=== PATIENT | male | born 1950 | race Hispanic/Latino ===

== ENCOUNTER → 2019-05-26 | Day surgery (SDC) | payer MEDICARE ==
[~2019-05-26] MED LIST: CEFTRIAXONE SOD 1 GM/NS 50 ML 50 ML IV ONE; DEXAMETHASONE SOD PHOS INJ 4 MG/ML VIAL ONE; EPHEDRINE SULFATE INJ 50 MG/ML VIAL ONE; GABAPENTIN PO; IOPAMIDOL 300MG/ML 50ML INFUS..BTL IV ONE; LIDOCAINE HCL 2% LOCAL INJ 5 ML SDV VIAL INJ ONE; NORCO PO; PROPOFOL IV EMULSION 10 MG/ML 20 ML VIAL ONE; ROCURONIUM BROMIDE 10 MG/ML 5ML VIAL IV ONE; SEVOFLURANE INHAL SOLN 250 ML PEN BTL ONE; SUCCINYLCHOLINE CHLORIDE 20 MG/ML 10ML VIAL ONE
--- OUTSIDE RECORDS SUMMARY | 2019-05-26 05:45 | XMS REPORT | Summary of Care ---
Demographics Address [address] [place] [id number] Home Phone Preferred Language Spanish Marital Status Single Moravian Affiliation CAT Race White Ethnic Group /Latin Author Author [facility] - Health Organization [facility] - Health Address Unknown Phone Unavailable Care Team Providers Care Applications Scientist Name Role Phone Kenzie Lowery Sj PCP Reason for Visit * Reason Comments Notification Encounter Details Care Team Description Date Type Department Oscar Penny MD [address] [place] [id number] Notification 03/17/2019 Telephone [facility] and [address] [phone] Allergies Comments Active Allergy Reactions Severity Noted Date Constipation Codeine Unknown - See Low 03/08/2019 comments documented as of this encounter (statuses as of 03/17/2019) Medications End Date Status Medication Sig Dispensed Refills Start Date Active HYDROcodone-acetaminophen 0 10-325 mg tablet 8 Active gabapentin 300 mg capsule 0 8 Active brompheniramine-pseudoeph Take 5 mL by 150 mL 0 edrine-DM (BROMFED DM) mouth 4 8 2-30-10 mg/5 mL (four) times syrupIndications: Cough daily as with congestion of needed for paranasal sinus, Smoker Cold symptoms or Cough. Active tamsulosin 0.4 mg 24 hr Take 1 28 capsule 0 capsuleIndications: capsule by 0 Kidney stone on right mouth daily. side Active ciprofloxacin HCl 500 mg Take 1 tablet 10 tablet 0 tabletIndications: Kidney by mouth 0 stone on right side every 12 (twelve) hours. documented as of this encounter (statuses as of 03/17/2019) Active Problems Problem Noted Date Acute right flank pain 03/13/2019 Overview: Added automatically from request for surgery [id number] Kidney stone on right side 03/13/2019 Overview: Added automatically from request for surgery [id number] Urinary tract obstruction due to kidney stone 03/08/2019 Abdominal pain 03/08/2019 Sciatica 01/15/2018 Smoker 01/15/2018 documented as of this encounter (statuses as of 03/17/2019) Social History Date Tobacco Use Types Packs/Day Years Used Current Every Day Smoker Smokeless Tobacco: Never Used Drinks/Week oz/Week Comments Alcohol Use Yes Sex Assigned at Date Recorded Not on file Industry Job Start Date Occupation Not on file Not on file Not on file Travel End Travel History Travel Start No recent travel history available. documented as of this encounter Last Filed Vital Signs Not on filedocumented in this encounter Plan of Treatment Health Maintenance Due Date Last Done Comments HEPATITIS C (HCV) SCREEN 1950 DTaP,Tdap,and Td Vaccines 02/11/1963 (1 - Tdap) COLONOSCOPY 02/11/2002 Zoster Recombinant 02/11/2002 Vaccine (SHINGRIX) (1 of 2) LUNG CANCER SCREEN: 02/11/2007 Recommended for age 55-80 with 30 + pack year history Medicare Wellness Visit 02/11/2017 PNEUMOCOCCAL VACCINES 65+ 02/11/2017 (1 of 2 - PCV13) INFLUENZA VACCINE (#1) 2018 documented as of this encounter Implants Device Identifier Shelf Expiration Date Model / Serial / Lot Implanted Type Area Manufactur er 06/08/2022 [id number] / NA / [id number] Double Pigtail Ureteral Stent STENT Right: Ureter Olympus Ref#[id number] Ulices Implanted: Qty: 1 on 03/08/2019 by Oscar Penny MD at [facility] ([facility]) 11/25/2019 [id number] / NA / [id number] Stent, Ureteral Firm [id number] Cook STENT Right: Ureter Cook #[id number] - [employer] Implanted: Qty: 1 on 03/08/2019 by Oscar Penny MD at [facility] ([facility]) documented as of this encounter Results Not on filedocumented in this encounter Insurance Type Payer Benefit Subscriber ID Effective Phone Address Plan / Dates Group Medicare Adv HMO [employer] [place] [id number] 2018 [place] -Present HMO Medicare Adv HMO [employer] [place] [id number] 2019-P [place] PLUS resent CLASSIC/VA LUE documented as of this encounter
--- OUTSIDE RECORDS SUMMARY | 2019-05-26 05:45 | XMS REPORT | Summary of Care ---
Author Author JORDEN PADILLA M.D. Organization Unknown Address Unknown Phone Unavailable Care Team Providers Care Account Liaison Hospice Name Role Phone JORDEN PADILLA M.D. Unavailable Unavailable Kenzie Lowery MD Unavailable Unavailable Unavailable Unavailable Functional Status Name Dates Details Functional status health issues are not documented Status: Name Dates Details Cognitive status health issues are not documented Status: Problems Name Dates Details Encounter for smoking cessation counseling (V65.42, Z71.6) Status: Active AAA (abdominal aortic aneurysm) without rupture (441.4, I71.4) Status: Active Medications Name Dates Details [place] 5-325 MG Oral Tablet Active Neurontin 100 MG Oral Capsule * Refills: 0 Active Allergies and Adverse Reactions Name Dates Details No Known Allergies (Allergy) Status: Active Procedures Procedure Dates Details Procedures not documented Immunization Name Dates Details Immunizations not documented Social History Name Dates Details - Status: Name Dates Details Current every day smoker Vital Signs Date Test Result Details [id number] BP Systolic 126 mm[Hg] Status: BP Diastolic 80 mm[Hg] Status: Height 65 in Status: Weight 227 lb Status: Body Mass Index Calculated 37.77 kg/m2 Status: Body Surface Area Calculated 2.09 m2 Status: Results Date Description Value Details Results not documented Plan of Care Name Dates Details Planned Observations Planned Goals not documented Interventions Provided Plan* I will see him again in a year for repeat aortic ultrasound. Instructions Name Dates Details Instructions not documented Encounters Appointment; JORDEN PADILLA M.D. Encounter Diagnosis: Problem not documented On: 19-Apr-2017 13:45 Appointment; DR RANDY MOBLEY Encounter Diagnosis: Problem not documented On: 28-Apr-2017 6:00 Appointment; DR RANDY MOBLEY Encounter Diagnosis: Problem not documented On: 03-Nov-2017 8:00 Appointment; JORDEN PADILLA M.D. Encounter Diagnosis: Problem not documented On: 08-Nov-2017 9:15
--- OUTSIDE RECORDS SUMMARY | 2019-05-26 05:45 | XMS REPORT ---
Demographics Address [address] [place] [address] Preferred Language Unknown Marital Status Unknown Restorationist Affiliation Unknown Race Unknown Ethnic Group Unknown Author Author [facility] Address Unknown Phone Unavailable Care Team Providers Care Brake Reliner Name Role Phone Unavailable Unavailable Problems This patient has no known problems. Allergies, Adverse Reactions, Alerts This patient has no known allergies or adverse reactions. Medications This patient has no known medications.
--- OUTSIDE RECORDS SUMMARY | 2019-05-26 05:45 | XMS REPORT | Summary of Care ---
Demographics Address [address] [place] [address] Home Phone Preferred Language Czech Marital Status Single Baptist Affiliation CAT Race White Ethnic Group /Latin Author Author [facility] - Health Organization [facility] - Health Address Unknown Phone Unavailable Care Team Providers Care First Officer Name Role Phone Kenzie Lowery Sj PCP Encounter Details Care Team Description Date Type Department Doctor Unassigned, [place] [address] [place] [id number] 03/07/2018 Orders Only [facility] [address] [place] [address] Allergies Comments Active Allergy Reactions Severity Noted Date Constipation Codeine Unknown - See Low 03/08/2019 comments documented as of this encounter (statuses as of 04/11/2019) Medications End Date Status Medication Sig Dispensed Refills Start Date Active HYDROcodone-acetaminophen 0 10-325 mg tablet 8 Active gabapentin 300 mg capsule 0 8 Active brompheniramine-pseudoeph Take 5 mL by 150 mL 0 edrine-DM (BROMFED DM) mouth 4 8 2-30-10 mg/5 mL (four) times syrupIndications: Cough daily as with congestion of needed for paranasal sinus, Smoker Cold symptoms or Cough. documented as of this encounter (statuses as of 04/11/2019) Active Problems Problem Noted Date Acute right flank pain 03/13/2019 Overview: Added automatically from request for surgery [id number] Kidney stone on right side 03/13/2019 Overview: Added automatically from request for surgery [id number] Urinary tract obstruction due to kidney stone 03/08/2019 Abdominal pain 03/08/2019 Sciatica 01/15/2018 Smoker 01/15/2018 documented as of this encounter (statuses as of 04/11/2019) Social History Date Tobacco Use Types Packs/Day [...] Lot Implanted Type Area Manufactur er 06/08/2022 [id number] / NA / [id number] Double Pigtail Ureteral Stent STENT Right: Ureter Olympus Ref#[id number] Ulices Implanted: Qty: 1 on 03/08/2019 by Oscar Penny MD at [facility] ([facility]) 11/25/2019 [id number] / NA / [id number] Stent, Ureteral Firm [id number] Cook STENT Right: Ureter Cook #[id number] - [employer] Implanted: Qty: 1 on 03/08/2019 by Oscar Penny MD at [facility] ([facility]) documented as of this encounter Procedures Comments Procedure Name Priority Date/Time Associated Diagnosis EMERGENCY DEPARTMENT Routine 03/07/2018 DOCUMENTS 12:01 AM DIRECTOR OF OPTIMIZATION documented in this encounter Results Not on filedocumented in this encounter Insurance Type Payer Benefit Subscriber ID Effective Phone Address Plan / Dates Group Medicare Adv HMO [employer] [place] [employer] [id number] 2018 [place] -Present HMO documented as of this encounter
[2019-05-26 06:48] LABS: BASOPHILS # (AUTO) 0.1 (0.0-0.1); BASOPHILS % 0.5 % (0.0-1.0); EOSINOPHILS # (AUTO) 0.1 (0.0-0.4); EOSINOPHILS % 0.9 % (0.0-6.0); HEMATOCRIT 47.4 % (38.2-49.6); LYMPHOCYTES # (AUTO) 2.2 (1.0-3.2); LYMPHOCYTES % 21.7 % (18.0-39.1); MEAN CORPUSCULAR HEMOGLOBIN 31.8 pg (28-32); MEAN CORPUSCULAR HGB CONC 31.6 g/dL (31-35); MEAN CORPUSCULAR VOLUME 100.4 fL (81-99); MONOCYTES # (AUTO) 0.8 (0.2-0.8); MONOCYTES % 8.1 % (4.4-11.3); NEUTROPHILS # (AUTO) 6.8 (2.1-6.9); NEUTROPHILS % 68.4 % (38.7-80.0); PLATELET COUNT 280 x10e3/uL (140-360); RED BLOOD COUNT 4.72 x10e6/uL (4.3-5.7); RED CELL DISTRIBUTION WIDTH 13.3 % (11.7-14.4)
--- NOTE | 2019-05-26 07:10 | NUR ---
SPIRITUAL CARE - Pre-Surgery Pt sleeping soundly and no family at bedside. CARMEL CALDERON Technician Anatomic Pathology Spiritual Care Department O: [phone]
--- NOTE | 2019-05-26 07:30 | Diagnostic Imaging Report ---
EXAMINATION: CHEST 2 VIEWS INDICATION: Preop. Stone removal COMPARISON: None FINDINGS: TUBES and LINES: Partially visualized catheter coils projects in the upper retroperitoneum. LUNGS: Normal lung volumes. Lungs are clear. No consolidations. PLEURA: No pleural effusion or pneumothorax. HEART AND MEDIASTINUM: The cardiomediastinal silhouette is unremarkable. BONES AND SOFT TISSUES: Degenerative changes in the spine and shoulders. No acute osseous lesion. Soft tissues are unremarkable. UPPER ABDOMEN: No free air under the diaphragm. IMPRESSION: No acute thoracic radiographic abnormality. Partially visualized catheter coils projects in the upper retroperitoneum. Signed by: Cayden Jiang DO on 05/26/2019 7:27 AM
[2019-05-26 10:35] VITALS: BP 134/87
--- NOTE | 2019-05-26 13:54 | Operative Report ---
DATE OF PROCEDURE: 05/26/2019 SURGEON: Dieon Galeana MD PREOPERATIVE DIAGNOSES: 1. Indwelling right ureteral stent. 2. Right ureteral calculi. 3. Hydronephrosis. POSTOPERATIVE DIAGNOSES: 1. Indwelling right ureteral stent. 2. Right ureteral calculi. 3. Hydronephrosis. PROCEDURES: 1. Cystourethroscopy with complicated removal of a right indwelling stent (entirely separate procedure for an encrusted right ureteral stent). 2. Right-sided ureteroscopy with laser lithotripsy (entirely separate procedure with explicit purpose of ridding the patient of large right ureteral calculus). 3. Right-sided ureteroscopy with stent placement (entirely separate procedure with explicit purpose of preventing hydronephrosis). 4. Supervision of fluoroscopy. 5. Interpretation of retrograde pyelography. ANESTHESIA: General. ESTIMATED BLOOD LOSS: Minimal. COMPLICATIONS: None. INDICATIONS FOR PROCEDURE: Mr. Syed is a very pleasant 69-year-old male with a history of a very large almost 2 cm mid ureteral calculus, hemorrhaging, hydronephrosis, and rapidly increasing pain with blocked kidney. The patient and I had a long discussion in the office regarding alternatives, risks, and benefits. I explicitly discussed the fact that there is a serious medical condition of hydronephrosis, stent, ureteroscopy, and this procedure is felt to be medically necessary immediately to correct this condition without immediate urgent performance of this procedure, the patient will be risk for serious adverse medical consequences or including blockage of the kidney, hydronephrosis, renal failure, or infections. The patient voiced understanding of the options, alternatives, risks, and benefits, and elected to proceed. PROCEDURE IN DETAIL: After informed consent was obtained, the patient was taken to the operative suite, placed supine on the operating table, underwent general anesthesia by Anesthesia Service, placed in dorsal lithotomy position, and sterilely prepped and draped for cystoscopy. A 21-Slovak cystoscope was inserted per urethra and normal urethra was noted. Panendoscopy of the bladder revealed no tumors, no stones. Both ureteral orifices were in normal anatomic location. Encrusted right ureteral stent was seen. It was grasped and attempts made to catheterize this and failed. Ureteral stent was removed. Ureter was accessed with a wire. Wire was advanced to the level of renal pelvis under fluoroscopy. The ureteroscope was advanced a very large multiple obstructing stones. Total stone burden was 1.2 cm now by approximately 8 mm. Utilizing 365 micron laser fiber, the stones were obliterated in fragments. No larger than 1 or 2 mm. At this time, ureteroscope was advanced to proximal ureter. Retrograde pyelogram was performed under fluoroscopy revealed no other proximal stones. Ureteral stent was then deployed with a coil in the renal pelvis and a coil in the bladder. A string was tied outside the level of meatus. The bladder was drained. The patient was awakened from anesthesia and transported to the recovery room in excellent condition. Supervision of fluoroscopy and interpretation of retrograde pyelography: I was present for the entire procedure and supervised fluoroscopy. There was no radiologist present. Attention was turned towards the right ureteral orifice, which was catheterized. Ureteroscope under fluoroscopy, retrograde pyelogram was performed revealing obliteration of the ureteral calculus and drainage of the collecting system with a stent. MD DIGNA Hernandez/MAURILIO /[id number]
== END | disposition home or self-care (01) ==
LOC: OR 05:43
PROVIDERS: ATTEND Urology
DX: N20.1 Calculus of ureter (principal); N13.30 Unspecified hydronephrosis; N39.0 Urinary tract infection, site not specified; Z91.19 Patient's noncompliance with other medical treatment and regimen; F17.210 Nicotine dependence, cigarettes, uncomplicated; Z88.6 Allergy status to analgesic agent; Z68.34 Body mass index [BMI] 34.0-34.9, adult; Z84.1 Family history of disorders of kidney and ureter
CPT/HCPCS: 36415; 52356; 71046; 76000; 85025; 93005; C1758; C1769; C2617; J0330; J0696; J1100; J2001